=== PATIENT | male | born 1980 | race Caucasian/White ===

== ENCOUNTER 2020-02-06 12:26 | Emergency (ER) | payer MEDICAID, SELFPAY ==
[~2020-02-06] VITALS: Ht 160 cm; Wt 81.6 kg
--- NOTE | 2020-02-06 12:28 | NUR ---
[facility] RECINOS ALS TO ER BED 09. RN EVALUATING AT BEDSIDE.
[2020-02-06 12:30] VITALS: BP 109/72
--- NOTE | 2020-02-06 12:40 | NUR ---
DR. BRADSHAW AT BEDSIDE EVALUATING PT
--- NOTE | 2020-02-06 12:40 | NUR ---
PT BIBA C/O FEVER, SOB, COUGH, NAUSEA, SORE THROAT, PINKY EYES FOR 6 DAYS. DENIES CP, VOMITING, OR DIARRHEA. T 104.1 UPON TRIAGE. PT WORKS IN [facility] AND IS NOT SURE HE HAS CONTACTED WITH CONFIRMED CLIENTS. PATIENT STATES PAIN OF 9/10 AT THIS TIME; VSS; PATIENT POSITIONED FOR COMFORT; HOB ELEVATED; BEDRAILS UP X2; BED DOWN. ER MD MADE AWARE OF PT STATUS. PT IS IN ISO ROOM.
[2020-02-06] MEDS ORDERED: ACETAMINOPHEN EXTRA STRENGTH 500 MG TAB PO ONE (12:45)
[2020-02-06] MEDS ORDERED: KETOROLAC 30 MG/ML VIAL IM ONE (12:50)
--- NOTE | 2020-02-06 12:59 | NUR ---
COVID SWAB OBTAINED AT BEDSIDE AND WALKED TO LAB.
--- NOTE | 2020-02-06 13:49 | NUR ---
PTOVIDED PT WITH SANDWICH REQUESTED
[2020-02-06 14:45] VITALS: BP 109/58
--- NOTE | 2020-02-06 14:45 | NUR ---
Patient discharged with v/s stable. Written and verbal after care instructions given and explained. Patient alert, oriented and verbalized understanding of instructions. Ambulatory with steady gait. All questions addressed prior to discharge. ID band removed. Patient advised to follow up with PMD. Rx of NAPROSYN, ALBUTEROL, AZITHROMYCIN, ACETAMINOPHEN given. Patient educated on indication of medication including possible reaction and side effects. Opportunity to ask questions provided and answered.
== END 2020-02-06 14:45 | disposition home or self-care (01) ==
LOC: EEVIPCON 12:26 → MED 12:26
DX: J18.9 Pneumonia, unspecified organism (principal); R50.9 Fever, unspecified; Z20.828 Contact with and (suspected) exposure to other viral communicable diseases
CPT/HCPCS: 71045; 96372; 99284; J1885; Q0092; U0003